=== PATIENT | male | born 1995 | race Hispanic/Latino ===

== ENCOUNTER 2017-08-24 08:27 | Emergency (ER) | payer MEDICAID, OTHER | END 2017-08-24 09:08 | disposition home or self-care (01) | LOC: EDH 08:27 | DX: K11.5 Sialolithiasis (principal); L04.9 Acute lymphadenitis, unspecified | CPT/HCPCS: 99281 ==

== ENCOUNTER 2020-06-08 07:00 | Emergency (ER) | payer BC ==
[2020-06-08] MEDS ORDERED: KETOROLAC TROMETHAMINE 60 MG/2 ML VIAL ONE (07:39)
[2020-06-08] MEDS ORDERED: CYCLOBENZAPRINE HCL 10 MG TABLET ONE (07:40)
== END 2020-06-08 08:27 | disposition home or self-care (01) ==
LOC: EDH 07:00
DX: M54.16 Radiculopathy, lumbar region (principal)
CPT/HCPCS: 99283; J1885

== ENCOUNTER → 2024-06-01 | Outpatient (CLI) | payer BC ==
--- NOTE | 2024-06-01 15:04 | HMCIMG ---
MR SPINAL CANAL, LUMBAR WO CON HISTORY: Right lower extremity pain COMPARISON: None TECHNIQUE: MRI of the lumbar spine was performed utilizing multiple pulse sequences in axial , coronal and sagittal plane. Patient was not given contrast through intravenous route. FINDINGS: No abnormal signal intensity is seen of the visualized bony structure. No loss of vertebral height is seen. There is straightening of normal lumbar curvature which may be related to muscle spasm or positioning. Degenerative disc signals are present at L4-5 and L5-S1 levels. Visualized distal conus is unremarkable. At the L4-5 level, there is central and right central disc herniation/extrusion with annular tear causing anterior thecal sac compression with bilateral lateral recess stenosis and mild bilateral foraminal stenosis with right more than left. The thecal sac measures approximately 6 mm in its anterior posterior dimension. At the L5-S1 level, there is right of central disc herniation/extrusion causing anterior thecal sac compression with bilateral lateral recess stenosis and bilateral neural foraminal stenosis with right worse than left. There is encroachment of right-sided nerve root.. The thecal sac measures approximately 6.7 mm in its anterior posterior dimension. IMPRESSION: 1. Bilateral central disc herniation/extrusion is are seen are seen at L4-L5 and L5-S1 levels as described above. There is encroachment of the right-sided nerve root at L5-S1 level.
== END | disposition home or self-care (01) ==
LOC: RAH 13:02
PROVIDERS: ATTEND Nurse Practitioner Family
DX: M51.16 Intervertebral disc disorders with radiculopathy, lumbar region (principal); M51.27 Other intervertebral disc displacement, lumbosacral region; M48.07 Spinal stenosis, lumbosacral region
CPT/HCPCS: 72148